=== PATIENT | male | born 1995 | race African-American/Black ===

== ENCOUNTER 2019-12-28 14:50 | Emergency (ER) | payer SELFPAY ==
[2019-12-28] MEDS ORDERED: LIDOCAINE 1% 20 ML MDV ONE (15:41)
[2019-12-28] MEDS ORDERED: HYDROCODONE/APAP 10/325 TAB ONE (15:41)
[2019-12-28] MEDS ORDERED: BUPIVACAINE 0.5% PF 10 ML VIAL ONE (15:41)
--- NOTE | 2019-12-28 16:10 | ER ---
Nurse's Notes [facility] Name: Trung Bryan Age: 24 yrs Sex: Male : 1995 Arrival Date: 12/28/2019 Time: 14:54 Bed 16 Private MD: Diagnosis: Pilonidal cyst with abscess Presentation: 12/27 15:03 Chief complaint: Patient states: possible abscess to gluteal cleft x 1 week ago. aa5 Coronavirus screen: Client denies travel out of the [place] in the last 14 days. At this time, the client does not indicate any symptoms associated with coronavirus-19. Ebola Screen: Patient negative for fever greater than or equal to 101.5 degrees Fahrenheit, and additional compatible Ebola Virus Disease symptoms. Initial Sepsis Screen: Does the patient meet any 2 criteria? No. Patient's initial sepsis screen is negative. Does the patient have a suspected source of infection? No. Patient's initial sepsis screen is negative. Risk Assessment: Do you want to hurt yourself or someone else? Patient reports no desire to harm self or others. Onset of symptoms was 2019. 15:03 Method Of Arrival: Ambulatory aa5 15:03 Acuity: CHANTELL 4 aa5 Triage Assessment: 15:21 General: Appears in no apparent distress. uncomfortable, Behavior is calm, cooperative. ks7 Pain: Complains of pain in buttocks Pain currently is 8 out of 10 on a pain scale. Quality of pain is described as tender, Pain began 2-3 days ago. Is continuous, Alleviated by repositioning, Aggravated by repositioning. Derm: Skin is red, Skin temperature is warm cyst to R gluteal cleft close to coccyx. Musculoskeletal: no deficits, cyst to buttocks. Historical: - Allergies: 15:04 No Known Allergies; aa5 - PMHx: 15:04 None; aa5 - Immunization history:: Adult Immunizations up to date. - Social history:: Smoking status: Patient denies any tobacco usage or history of. Screenin:26 Abuse screen: Denies threats or abuse. Denies injuries from another. Nutritional ks7 screening: No deficits noted. Tuberculosis screening: No symptoms or risk factors identified. Fall Risk None identified. Assessment: 15:26 Reassessment: pt comes in for cyst/abcess to R gluteal cleft. pt c/o pain to buttocks ks7 8/10. Neuro: No deficits noted. Neuro: No deficits noted. 15:40 Reassessment: Patient and/or family updated on plan of care and expected duration. Pain ks7 level reassessed. Patient is alert, oriented x 3, equal unlabored respirations, skin warm/dry/pink. Vital Signs: 15:04 BP 141 / 78; Pulse 94; Resp 16 S; Temp 98.5(O); Pulse Ox 98% on R/A; aa5 16:37 BP 101 / 66; Pulse 88; Resp 18; Temp 98.5(O); Pulse Ox 98% on R/A; Pain 0/10; ks7 ED Course: 14:54 Patient arrived in ED. ag5 14:57 Arm band placed on. aa5 15:04 Triage completed. [facility] 15:06 Driss Lamar PA is PHCP. [facility] 15:06 Moses Rubio MD is Attending Physician. [facility] 15:21 Omaira Castano, LU is Primary Nurse. ks7 15:26 Resting quietly. Awaiting: I \T\ D of abcess. ks7 15:26 Patient has correct armband on for positive identification. Bed in low position. Call ks7 light in reach. 15:26 No provider procedures requiring assistance completed. Patient did not have IV access ks7 during this emergency room visit. 16:32 Heladio Au MD is Referral Physician. [facility] 16:38 Wound care: to abcess located on R buttocks was dressed with 4X4s, I \T\ D by Driss THRASHER ks Patient tolerated well. Administered Medications: 15:32 Drug: [place] 10 mg-325 mg 1 tabs Route: PO; ks7 15:48 Drug: Lidocaine (1 %) 20 ml {Note: administered by Driss THRASHER.} Volume: 20 ml; ks7 Route: Infiltration; 15:49 Drug: Marcaine (0.5 %) 10 ml Volume: 10 ml; Route: Infiltration; ks7 15:49 Follow up: administered by Driss THRASHER [facility] Intake: Outcome: 16:09 Discharge ordered by . [facility] 16:38 Admitted to [facility] 16:38 Condition: good 16:38 Discharge instructions given to patient, Instructed on discharge instructions, follow up and referral plans. medication usage, wound care, Demonstrated understanding of instructions, follow-up care, medications, wound care, Prescriptions given X 1. 16:41 Patient left the ED. ks7 Signatures: Driss Lamar PA PA jmm Calderon, Audri, RN RN sally5 Kasey Chavis Kathleen, RN RN ks7
--- NOTE | 2019-12-28 16:10 | EDPHYS ---
Physician Documentation [facility] Name: Trung Bryan Age: 24 yrs Sex: Male : 1995 Arrival Date: 12/28/2019 Time: 14:54 Bed 16 Private MD: ED Physician Moses Rubio HPI: 12/27 16:05 This 24 yrs old Black Male presents to ER via Ambulatory with complaints of Back Pain. jmm 16:05 The patient presents with pain and swelling. Onset: The symptoms/episode began/occurred jmm gradually, 1 week(s) ago. The pain does not radiate. Associated signs and symptoms: Pertinent negatives: fever. Modifying factors: The patient symptoms are alleviated by remaining still, the patient symptoms are aggravated by sitting. This is a 24 year old male with no chronic medical conditions that presents to the ED with complaints of swelling to his buttocks for the past week. Denies fever. . Historical: - Allergies: 15:04 No Known Allergies; aa5 - PMHx: 15:04 None; aa5 - Immunization history:: Adult Immunizations up to date. - Social history:: Smoking status: Patient denies any tobacco usage or history of. ROS: 16:05 Constitutional: Negative for fever, chills, and weight loss, Cardiovascular: Negative jmm for chest pain, palpitations, and edema, Respiratory: Negative for shortness of breath, cough, wheezing, and pleuritic chest pain. 16:05 All other systems are negative. Exam: 16:05 Constitutional: This is a well developed, well nourished patient who is awake, alert, jmm and in no acute distress. Head/Face: atraumatic. Eyes: EOMI, no conjunctival erythema appreciated ENT: Moist Mucus Membranes Neck: Trachea midline, Supple Chest/axilla: Normal chest wall appearance and motion. Cardiovascular: Regular rate and rhythm. No edema appreciated Respiratory: Normal respirations, no respiratory distress appreciated Abdomen/GI: Non distended, soft Back: Normal ROM 16:05 Skin: abscess noted to the right gluteal cleft. 16:05 Neuro: Orientation: is normal, Mentation: is normal, Memory: is normal. 16:05 Psych: Behavior/mood is pleasant, cooperative. Vital Signs: 15:04 BP 141 / 78; Pulse 94; Resp 16 S; Temp 98.5(O); Pulse Ox 98% on R/A; aa5 16:37 BP 101 / 66; Pulse 88; Resp 18; Temp 98.5(O); Pulse Ox 98% on R/A; Pain 0/10; ks7 Procedures: 16:07 I \T\ D: Incision and drainage was performed for an abscess of the buttocks Prepped with [facility] Betadine, Anesthetized with 5 ml's 1% Lidocaine. Incised with #11 blade. Drained moderate amount purulent fluid. Packed with sterile gauze, Dressing: sterile 4x4 gauze, the patient tolerated the procedure well. MDM: 15:24 Patient medically screened. [facility] 16:07 Data reviewed: vital signs, nurses notes. Counseling: I had a detailed discussion with [facility] the patient and/or guardian regarding: the historical points, exam findings, and any diagnostic results supporting the discharge/admit diagnosis. 16:08 Counseling: I had a detailed discussion with the patient and/or guardian regarding: the [facility] need for outpatient follow up, to return to the emergency department if symptoms worsen or persist or if there are any questions or concerns that arise at home. ED course: Patient given wound infection return precautions. Patient understood and agrees with the plan of care. . 12/27 15:28 Order name: Incision \T\ Drainage Setup [facility] Administered Medications: 15:32 Drug: [place] 10 mg-325 mg 1 tabs Route: PO; ks7 15:48 Drug: Lidocaine (1 %) 20 ml {Note: administered by Driss THRASHER.} Volume: 20 ml; ks7 Route: Infiltration; 15:49 Drug: Marcaine (0.5 %) 10 ml Volume: 10 ml; Route: Infiltration; ks7 15:49 Follow up: administered by Driss THRASHER ks7 Disposition: 18:22 Co-signature as Attending Physician, Moses Rubio MD. rn Disposition: 12/28/19 16:09 Discharged to Home. Impression: Pilonidal cyst with abscess. - Condition is Stable. - Discharge Instructions: Incision and Drainage, Pilonidal Cyst, Incision and Drainage of a Pilonidal Cyst, Care After. - Prescriptions for Bactrim DS 800- 160 mg Oral Tablet - take 1 tablet by ORAL route every 12 hours for 10 days; 20 tablet. - Medication Reconciliation Form, Thank You Letter, Antibiotic Education, Prescription Opioid Use form. - Follow up: Private Physician; When: 2 - 3 days; Reason: Recheck today's complaints, Continuance of care, Re-evaluation by your physician. Follow up: Heladio Au MD; When: 2 - 3 days; Reason: Recheck today's complaints, Continuance of care, Re-evaluation by your physician. Signatures: Driss Lamar PA PA [facility] Moses Rubio MD MD rn Calderon, Audri, RN RN aa5 Omaira Castano RN RN ks7 Corrections: (The following items were deleted from the chart) 16:32 16:09 12/28/2019 16:09 Discharged to Home. Impression: Pilonidal cyst with abscess. [facility] Condition is Stable. Forms are Medication Reconciliation Form, Thank You Letter, Antibiotic Education, Prescription Opioid Use. Follow up: Private Physician; When: 2 - 3 days; Reason: Recheck today's complaints, Continuance of care, Re-evaluation by your physician. [facility] 16:41 16:32 12/28/2019 16:09 Discharged to Home. Impression: Pilonidal cyst with abscess. ks7 Condition is Stable. Discharge Instructions: Incision and Drainage, Pilonidal Cyst, Incision and Drainage of a Pilonidal Cyst, Care After. Prescriptions for Bactrim DS 800-160 mg Oral Tablet - take 1 tablet by ORAL route every 12 hours for 10 days; 20 tablet. and Forms are Medication Reconciliation Form, Thank You Letter, Antibiotic Education, Prescription Opioid Use. Follow up: Private Physician; When: 2 - 3 days; Reason: Recheck today's complaints, Continuance of care, Re-evaluation by your physician. Follow up: Heladio Au; When: 2 - 3 days; Reason: Recheck today's complaints, Continuance of care, Re-evaluation by your physician. [facility]
[2019-12-28 16:47] VITALS: TEMP 98.5; O2SAT 98
[2019-12-28 16:49] VITALS: BP 101/66
== END 2019-12-28 16:41 | disposition home or self-care (01) ==
LOC: ER 14:50
PROC: 0H98XZZ Drainage of Buttock Skin, External Approach (ICD-10-PCS; principal; 2019-12-28)
DX: L05.01 Pilonidal cyst with abscess (principal)
CPT/HCPCS: 99285

== ENCOUNTER 2022-03-09 18:38 | Emergency (ER) | payer SELFPAY ==
--- OUTSIDE RECORDS SUMMARY | 2022-03-09 18:40 | XMS REPORT | Continuity of Care Document ---
:1995 Author Organization [facility] t Address [address] [place] [address] Dr. Quesada [address] [place] [id number] Care Team Providers Name Role Phone JOJO Attending Clinician Unavailable JOJO Admitting Clinician Unavailable Problems This patient has no known problems. Allergies, Adverse Reactions, Alerts This patient has no known allergies or adverse reactions. Medications This patient has no known medications. Procedures This patient has no known procedures. Encounters Start End Encounter Admission Attending Care Care Encounter Source Date/Time Date/Time Type Type Clinicians Facility Department ID 2021-12-14 2021-12-14 Outpatient [facility] [address] 00:00:00 00:00:00 _HUSSEIN [id number] [facility] Program Results This patient has no known results.
[2022-03-09] MEDS ORDERED: FENTANYL CITR 100 MCG/2 ML ONE (21:35)
[2022-03-09] MEDS ORDERED: BUPIVACAINE 0.5% PF 10 ML VIAL ONE (21:36)
[2022-03-09] MEDS ORDERED: CLINDAMYCIN 900MG/D5W 900 MG/50 ML IVPB IV ONE (21:36)
[2022-03-09 21:37] LABS: Absolute Lymphocytes (CBC) 2.1 K/uL (0.7-4.9); Hematocrit 42.6 % (39.6-49.0); Lymphocytes % 16.1 % (15.3-44.8); MCV 90.1 fL (80-100); MPV 7.4 fL (7.6-11.3); RBC Red Blood Cell Count 4.73 M/uL (4.33-5.43)
[2022-03-09] MEDS ORDERED: LIDOCAINE 1% MPF 30 ML VIAL ONE (21:37)
[2022-03-09] MEDS ORDERED: NA CHLORIDE 0.9% 50 ML IV ONE (21:37)
[2022-03-09 22:31] LABS: Potassium 3.8 mmol/L (3.5-5.1)
--- NOTE | 2022-03-09 22:37 | EDPHYS ---
Physician Documentation [facility] Name: Trung Bryan Age: 26 yrs Sex: Male : 1995 Arrival Date: 03/09/2022 Time: 18:41 Bed 5 Private MD: ED Physician Trung Virk HPI: 03/09 21:30 This 26 yrs old Black Male presents to ER via Ambulatory with complaints of Cyst. cp 21:30 The patient presents with an abscess of the right buttock, The patient presents with cp cellulitis of the right buttock. Description: erythematous, swollen. 21:30 Onset: The symptoms/episode began/occurred 3 day(s) ago. Associated signs and symptoms: cp Pertinent negatives: discharge, drainage, fever. Severity of symptoms: in the emergency department the symptoms are unchanged, despite home interventions. Historical: - Allergies: 19:30 No Known Allergies; [facility] - Home Meds: 19:30 None [Active]; [facility] - PMHx: 19:30 thyroid disease -unmedicated; pilonidal cyst x2; [facility] - Immunization history:: Adult Immunizations up to date. - Social history:: Smoking status: Patient reports the use of cigarette tobacco products, denies chronic smoking, but will smoke occasionally. ROS: 21:35 Constitutional: Negative for body aches, chills, fever, poor PO intake. cp 21:35 Cardiovascular: Negative for chest pain, palpitations. cp 21:35 Respiratory: Negative for cough, shortness of breath, wheezing. 21:35 Abdomen/GI: Negative for abdominal pain, nausea, vomiting, and diarrhea, rectal pain. 21:35 Back: Negative for pain at rest, pain with movement. 21:35 Skin: Positive for erythema, swelling, of the right buttock. 21:35 Neuro: Negative for dizziness, headache, weakness. 21:35 All other systems are negative. Exam: 21:40 Constitutional: The patient appears in no acute distress, alert, awake, non-toxic, well cp developed, well nourished, uncomfortable. 21:40 Head/Face: Normocephalic, atraumatic. cp 21:40 Eyes: Periorbital structures: appear normal, Conjunctiva: normal, no exudate, no injection, Lids and lashes: appear normal, bilaterally. 21:40 ENT: External ear(s): are unremarkable, Nose: is normal, Mouth: Lips: moist, Oral mucosa: pink and intact, moist, Posterior pharynx: Airway: no evidence of obstruction, patent. 21:40 Chest/axilla: Inspection: normal. 21:40 Cardiovascular: Rate: normal. 21:40 Respiratory: the patient does not display signs of respiratory distress, Respirations: normal, no use of accessory muscles, no retractions. 21:40 Abdomen/GI: Inspection: abdomen appears normal, Palpation: abdomen is soft and non-tender, in all quadrants. 21:40 Skin: abscess, not appreciated, cellulitis, that is moderate, irregular, on the right buttock. Vital Signs: 19:26 BP 116 / 77; Pulse 97; Resp 18; Temp 98.6; Pulse Ox 98% ; Weight 113.4 kg; Height 6 ft. jh5 0 in. (182.88 cm); Pain 8/10; 20:44 BP 118 / 77; Pulse 99; Resp 18 S; Pulse Ox 100% on R/A; ha1 21:40 BP 114 / 69; Pulse 95; Resp 18 S; Pulse Ox 100% on R/A; ha1 19:26 Body Mass Index 33.91 (113.40 kg, 182.88 cm) jh5 MDM: 19:41 Patient medically screened. cp 21:00 Differential diagnosis: abscess, cellulitis, sepsis. cp 22:36 Data reviewed: vital signs, nurses notes, lab test result(s). cp 22:36 Counseling: I had a detailed discussion with the patient and/or guardian regarding: the cp historical points, exam findings, and any diagnostic results supporting the discharge/admit diagnosis, lab results, to return to the emergency department if symptoms worsen or persist or if there are any questions or concerns that arise at home. Response to treatment: the patient's symptoms have mildly improved after treatment, and as a result, I will discharge patient. ED course: Patient afebrile, appears non-toxic. No abscess observed at this time. Will treat with oral antibiotics, Recommend warm compresses and continued monitoring. Return to ED worsening symptoms. 03/09 20:53 Order name: CBC with Diff; Complete Time: 22:35 cp 03/09 22:35 Interpretation: Abnormal: WBC 13.10; MPV 7.4; NEUT A 9.6. cp 03/09 20:53 Order name: BMP; Complete Time: 22:35 cp 03/09 20:53 Order name: IV; Complete Time: 21:24 cp 03/09 20:53 Order name: I\\T\\D Setup; Complete Time: 22:35 cp Administered Medications: 21:46 Drug: Clindamycin 900 mg Route: IVPB; Infused Over: 30 mins; Site: right antecubital; ha1 22:33 Follow up: Response: No adverse reaction; IV Status: Completed infusion; IV Intake: [id number] 21:46 Drug: fentaNYL (PF) 25 mcg Route: IVP; Site: right antecubital; ha1 22:10 Follow up: Response: No adverse reaction; Pain is decreased; RASS: Alert and Calm (0) ha1 22:33 Drug: Marcaine (bupivacaine) (0.5 %) 10 ml {Note: administered by care provider.} ha1 Volume: 10 ml; Route: Infiltration; 22:35 Drug: Lidocaine (1 %) 10 ml {Note: administered by care provider.} Volume: 20 ml; ha1 Route: Infiltration; 22:50 Drug: Bactrim (trimethoprim-sulfamethoxazole) (160 mg-800 mg (DS) 2 tablet Route: PO; bb 22:52 Follow up: Response: Medication administered at discharge. bb Disposition Summary: 03/09/22 22:37 Discharge Ordered Location: Home cp Problem: new cp Symptoms: have improved cp Condition: Stable cp Diagnosis - Cellulitis of buttock - right cp Followup: cp - With: Private Physician - When: 1 - 2 days - Reason: Worsening of condition Discharge Instructions: - Discharge Summary Sheet cp - Cellulitis, Adult cp Forms: - Work release form bb - Medication Reconciliation Form cp - Thank You Letter cp - Antibiotic Education cp - Prescription Opioid Use cp Prescriptions: - Clindamycin HCl 300 mg Oral Capsule - take 1 capsule by ORAL route every 6 hours for 10 days; 40 capsule; Refills: 0, cp Product Selection Permitted - Ibuprofen 800 mg Oral Tablet - take 1 tablet by ORAL route every 8 hours As needed take with food; 30 tablet; cp Refills: 0, Product Selection Permitted - Bactrim DS 800-160 mg Oral Tablet - take 1 tablet by ORAL route every 12 hours for 10 days; 20 tablet; Refills: 0, cp Product Selection Permitted Addendum: 03/14/2022 04:03 Co-signature as Attending Physician, Trung Virk MD I agree with the assessment and c estrada plan of care. Signatures: Dispatcher [employer] Trung Willis MD MD cha Ballard, Brenda, RN RN Trung Palomares PA PA cp Shabana Finch, RN RN [facility] Elin Leiva RN RN ha1 Corrections: (The following items were deleted from the chart) 03/09 19:22 Allergies: Codeine; [place] [id number] :24 19:22 PMHx: COPD; [place] [id number] :24 19:22 PMHx: Crohn's disease; [place] [id number] 19:22 PMHx: "SHAKES"; [place] [id number] 24 19:22 Immunization history: Adult Immunizations up to date, [place] [id number] 19:22 Social history: Smoking status: Patient reports the use of cigarette tobacco [facility] products, smokes one pack cigarettes per day. [facility] 03/10 16:41 03/09 21:20 The patient presents with an abscess of the right buttock, The patient cp presents with cellulitis of the right buttock, cp 03/10 16:41 03/09 21:20 Description: erythematous, swollen, cp cp
--- NOTE | 2022-03-09 22:37 | ER ---
Nurse's Notes [facility] Name: Trung Bryan Age: 26 yrs Sex: Male : 1995 Arrival Date: 03/09/2022 Time: 18:41 Bed 5 Private MD: Diagnosis: Cellulitis of buttock-right Presentation: 03/09 19:26 Chief complaint: Patient states: I HAVE A CYSTRIGHT ABOVE MY CHEEKS, this is second [facility] time here last time the dm bust it and referred me to someone, I couldn't pay for the surgery so it's just going to keep coming back. Coronavirus screen: Vaccine status: Patient reports being unvaccinated. Client denies travel out of the [place] in the last 14 days. Ebola Screen: Patient negative for fever greater than or equal to 101.5 degrees Fahrenheit, and additional compatible Ebola Virus Disease symptoms Patient denies exposure to infectious person. Patient denies travel to an Ebola-affected area in the 21 days before illness onset. Initial Sepsis Screen: Does the patient meet any 2 criteria? No. Patient's initial sepsis screen is negative. Does the patient have a suspected source of infection? No. Patient's initial sepsis screen is negative. Risk Assessment: Do you want to hurt yourself or someone else? Patient reports no desire to harm self or others. Onset of symptoms was March 06, 2022. 19:26 Method Of Arrival: Ambulatory [facility] 19:26 Acuity: CHANTELL 3 5 Triage Assessment: 19:30 General: Appears in no apparent distress. uncomfortable, obese, well groomed, well [facility] developed, well nourished, Behavior is calm, cooperative, appropriate for age. Pain: Complains of pain in back. Historical: - Allergies: 19:30 No Known Allergies; [facility] - Home Meds: 19:30 None [Active]; [facility] - PMHx: 19:30 thyroid disease -unmedicated; pilonidal cyst x2; [facility] - Immunization history:: Adult Immunizations up to date. - Social history:: Smoking status: Patient reports the use of cigarette tobacco products, denies chronic smoking, but will smoke occasionally. Screenin:44 Abuse screen: Denies threats or abuse. Denies injuries from another. Nutritional ha1 screening: No deficits noted. Tuberculosis screening: No symptoms or risk factors identified. Fall Risk None identified. Assessment: 20:40 General: Appears comfortable, Behavior is calm, cooperative. Pain: Complains of pain in ha1 sacrum area Pain does not radiate. Pain currently is 6 out of 10 on a pain scale. Quality of pain is described as burning, Is intermittent. Neuro: Level of Consciousness is awake, alert, obeys commands, Oriented to person, place, time, situation. Cardiovascular: Patient's skin is warm and dry. Respiratory: Airway is patent Trachea midline Respiratory effort is even, unlabored, Respiratory pattern is regular, symmetrical. GI: No signs and/or symptoms were reported involving the gastrointestinal system. Abdomen is flat, non-distended. : No signs and/or symptoms were reported regarding the genitourinary system. Derm: Abscess located on between bottocks is nickel sized, has no drainage, is raised, painful to touch. 21:40 Reassessment: Patient and/or family updated on plan of care and expected duration. Pain ha1 level reassessed. Patient is alert, oriented x 3, equal unlabored respirations, skin warm/dry/pink. 22:37 Reassessment: Patient and/or family updated on plan of care and expected duration. Pain ha1 level reassessed. Patient is alert, oriented x 3, equal unlabored respirations, skin warm/dry/pink. provider at bedside performing debridement of abscess. 22:52 Reassessment: Patient is alert, oriented x 3, equal unlabored respirations, skin bb warm/dry/pink. pt verbalized understanding of and agrees to plan of care discharge instructions given pt ambulated with steady gait to exit accompanied by family. Vital Signs: 19:26 BP 116 / 77; Pulse 97; Resp 18; Temp 98.6; Pulse Ox 98% ; Weight 113.4 kg; Height 6 ft. jh5 0 in. (182.88 cm); Pain 8/10; 20:44 BP 118 / 77; Pulse 99; Resp 18 S; Pulse Ox 100% on R/A; ha1 21:40 BP 114 / 69; Pulse 95; Resp 18 S; Pulse Ox 100% on R/A; ha1 19:26 Body Mass Index 33.91 (113.40 kg, 182.88 cm) 5 ED Course: 18:41 Patient arrived in ED. am2 18:43 Page, Trung, PA is PHCP. cp 18:43 Trung Virk MD is Attending Physician. cp 19:22 Triage completed. jh5 19:30 Arm band placed on right wrist. jh5 20:40 Elin Leiva RN is Primary Nurse. ha1 21:15 Inserted saline lock: 20 gauge in right antecubital area, using aseptic technique. oe Blood collected. 21:24 BMP Sent. oe 21:24 CBC with Diff Sent. oe 22:53 IV discontinued, intact, bleeding controlled, No redness/swelling at site. Pressure bb dressing applied. 22:54 Patient has correct armband on for positive identification. bb Administered Medications: 21:46 Drug: Clindamycin 900 mg Route: IVPB; Infused Over: 30 mins; Site: right antecubital; ha1 22:33 Follow up: Response: No adverse reaction; IV Status: Completed infusion; IV Intake: [id number] 21:46 Drug: fentaNYL (PF) 25 mcg Route: IVP; Site: right antecubital; ha1 22:10 Follow up: Response: No adverse reaction; Pain is decreased; RASS: Alert and Calm (0) ha1 22:33 Drug: Marcaine (bupivacaine) (0.5 %) 10 ml {Note: administered by care provider.} ha1 Volume: 10 ml; Route: Infiltration; 22:35 Drug: Lidocaine (1 %) 10 ml {Note: administered by care provider.} Volume: 20 ml; ha1 Route: Infiltration; 22:50 Drug: Bactrim (trimethoprim-sulfamethoxazole) (160 mg-800 mg (DS) 2 tablet Route: PO; bb 22:52 Follow up: Response: Medication administered at discharge. bb Medication: 22:54 VIS not applicable for this client. bb Intake: 22:33 IV: 50ml; Total: 50ml. ha1 Outcome: 22:37 Discharge ordered by MD. cp 22:53 Discharged to home ambulatory, with family. bb 22:53 Condition: stable 22:53 Discharge instructions given to patient, Instructed on discharge instructions, follow up and referral plans. medication usage, Demonstrated understanding of instructions, follow-up care, medications, Prescriptions given X 3. 22:54 Patient left the ED. bb Signatures: Keira Hernandez RN RN bb Trung Rose PA PA cp Mark Benavides Amanda am2 Shabana Finch RN RN [facility] Elin Leiva, RN RN 1 Corrections: (The following items were deleted from the chart) 19:23 19:20 Chief complaint: Patient states: EMS called; patient difficulty breathing x2 5 months since COVID, smokes half pack or more a day, is supposed to take albuterol 2x a day and doesn't. EMS inserted 20g right hand, gave 125 solu medrol and a breathing treatment in route [facility] 19:23 19:20 Coronavirus screen: Vaccine status: Patient reports being unvaccinated. Client [facility] denies travel out of the [place] in the last 14 days. [facility] 19:23 19:20 Ebola Screen: Patient negative for fever greater than or equal to 101.5 degrees [facility], and additional compatible Ebola Virus Disease symptoms Patient denies exposure to infectious person. Patient denies travel to an Ebola-affected area in the 21 days before illness onset. [facility] 19:23 19:20 Initial Sepsis Screen: Does the patient meet any 2 criteria? No. Patient's [facility] initial sepsis screen is negative. Does the patient have a suspected source of infection? No. Patient's initial sepsis screen is negative. [facility] 19:23 19:20 Risk Assessment: Do you want to hurt yourself or someone else? Patient reports no [facility] desire to harm self or others. [facility] 19:23 19:20 Onset of symptoms was December 2021 [place] [id number] 19:23 19:20 Method Of Arrival: EMS: [facility] [place] [id number] 19:23 19:20 BP 142 / 88; Pulse 102bpm; Resp 22bpm; Pulse Ox 95%; Temp 98.7F; 61.23 kg; Height [facility] 5 ft. 2 in.; BMI: 24.6; Pain 0/10; [facility] 19:23 19:20 Acuity: CHANTELL 3 [place] [id number] 19:24 19:22 Allergies: Codeine; [place] [id number] :24 19:22 PMHx: COPD; [place] [id number] :24 19:22 PMHx: Crohn's disease; [place] [id number] 19:24 19:22 PMHx: "SHAKES"; [place] [id number] 19:24 19:22 Immunization history: Adult Immunizations up to date, [place] [id number] 19:22 Social history: Smoking status: Patient reports the use of cigarette tobacco [facility] products, smokes one pack cigarettes per day. [facility] 19:22 General: Appears uncomfortable, unkempt, Behavior is calm, cooperative, [facility] appropriate for age, [facility] 19:22 Pain: Denies pain. [place] [id number]
[2022-03-09] MEDS ORDERED: SMZ./TMP. 800/160 MG TABLET ONE (22:40)
[2022-03-09 23:43] VITALS: TEMP 98.6
[2022-03-09 23:44] VITALS: O2SAT 100
[2022-03-09 23:46] VITALS: BP 114/69
== END 2022-03-09 22:54 | disposition home or self-care (01) ==
LOC: ER 18:38
DX: L03.317 Cellulitis of buttock (principal); Z72.0 Tobacco use
CPT/HCPCS: 36415; 80048; 85025; 96365; 96375; 99284; J3010